=== PATIENT | female | born 1950 | race Caucasian/White ===

== ENCOUNTER 2017-04-25 05:43 | Observation (INO) ==
[2017-04-24 08:55] LABS: MANUAL DIFF NEEDED? NO; URINE MICRO REVIEW NEEDED? NO; URINE SOURCE VOIDED
--- NOTE | 2017-04-24 09:05 | Diag Imaging Result Doc PS360 ---
CHEST-2 VIEWS - 04/24/2017 INDICATION: PAT TECHNIQUE: COMPARISON: 07/20/2016 FINDINGS: The lungs are normally expanded and clear. Heart size and mediastinal contours are normal. No pneumothorax or pleural effusion. IMPRESSION: Negative exam. Electronically signed by Denny Young 04/24/2017 9:02 AM
[2017-04-24 09:13] LABS: BASO% 0.2 % (0.0-0.8); EOS# 0.08 X1000 (0.0-0.7); EOS% 1.7 % (0.0-10.0); HEMATOCRIT 42.9 % (37.0-47.0); HEMOGLOBIN 14.6 g/dL (12.0-16.0); LYMPH# 1.09 X1000 (1.2-3.4); LYMPH% 23.6 % (20.5-51.1); MCH 33.5 PG (27-31); MCV 98.4 FL (81-99); MONO# 0.65 X1000 (0.11-0.59); MONO% 14.1 % (1.7-9.3); MPV 8.8 FL (7.4-10.4); NEUT% 60.4 % (42.2-75.2); PLT 329 X1000 (130-400); RBC 4.36 XMIL (4.2-5.4)
[2017-04-24 09:22] LABS: BILIRUBIN URINE NEGATIVE (NEGATIVE); BLOOD URINE NEGATIVE (NEGATIVE); COLOR YELLOW; GLUCOSE URINE NEGATIVE (NEGATIVE); LEUKOCYTES URINE NEGATIVE (NEGATIVE); NITRITE URINE NEGATIVE (NEGATIVE); PH URINE 6.5; PROTEIN URINE TRACE mg/dL (NEGATIVE); SP GRAVITY URINE 1.025; TURBIDITY URINE CLEAR (CLEAR); UROBILINOGEN URINE 2 mg/dL (NORMAL)
[2017-04-24 09:24] LABS: UR EPITHELIAL CELLS <10 /HPF (<10); URINE BACTERIA NEGATIVE /HPF; URINE RBC <10 /HPF (<10); URINE WBC <10 /HPF (<10)
[2017-04-24 10:01] LABS: AGAP 14; ALBUMIN 4.6 g/dL (3.5-5.0); ALKALINE PHOSPHATASE 146 U/L (32-104); BUN 12 mg/dL (8-22); CALCIUM 9.6 mg/dL (8.8-10.2); CHLORIDE 88 mmol/L (98-107); COSMO 257; GOT 19 U/L (10-30); GPT 15 U/L (10-36); POTASSIUM 5.3 mmol/L (3.5-5.1); SODIUM 128 mmol/L (136-145); TCO2 26 mmol/L (25-35); TOTAL BILIRUBIN 0.54 mg/dL (0.20-1.00)
--- NOTE | 2017-04-24 10:30 | EKG Report ---
Test Performed on : 04/24/2017 08:34:50 AM Test Reason : PAT Blood Pressure : / mmHG Vent. Rate : 076 BPM Atrial Rate : 076 BPM P-R Int : 148 ms QRS Dur : 080 ms QT Int : 366 ms P-R-T Axes : 054 011 055 degrees QTc Int : 411 ms Normal sinus rhythm. Nonspecific T wave abnormality Abnormal ECG When compared with ECG of 20-JUL-2016 07:53, Questionable change in QRS axis Confirmed by August Patel MD ([id number]) on 04/24/2017 1:40:47 PM
[2017-04-25] MEDS ORDERED: KEFZOL 1 GM/D5W 1 GM/50 ML IVPB ONE (06:20)
[2017-04-25] MEDS ORDERED: PEPCID ONE (06:20)
[2017-04-25] MEDS ORDERED: LR 1,000 ML ONE (06:21)
[2017-04-25] MEDS ORDERED: XYLOCAINE-MPF 2% ONE (07:24)
[2017-04-25] MEDS ORDERED: DIPRIVAN 1% ONE (07:24)
[2017-04-25] MEDS ORDERED: XYLOCAINE 1%/EPI 1:100,000 ONE (07:44)
[2017-04-25] MEDS ORDERED: SENSORCAINE 0.25%/EPI 1:200,000 ONE (07:44)
[2017-04-25] MEDS ORDERED: FENTANYL ONE (08:03)
[2017-04-25] MEDS ORDERED: ZOFRAN ONE (08:44)
[2017-04-25 08:53] LABS: AGAP 16; BUN 10 mg/dL (8-22); CALCIUM 8.8 mg/dL (8.8-10.2); CHLORIDE 88 mmol/L (98-107); COSMO 257; POTASSIUM 4.5 mmol/L (3.5-5.1); SODIUM 129 mmol/L (136-145); TCO2 25 mmol/L (25-35)
[2017-04-25] MEDS ORDERED: SODIUM CHLORIDE 0.9% 10 ML ONE ×2 (09:04→09:05)
[2017-04-25] MEDS ORDERED: MARCAINE 0.25% PF ONE (09:04)
[2017-04-25] MEDS ORDERED: EXPAREL 1.3% ONE (09:05)
[2017-04-25] MEDS ORDERED: ROBINUL ONE (09:07)
[2017-04-25] MEDS ORDERED: NEOSTIGMINE ONE (09:08)
[2017-04-25 09:37] LABS: URINE MICRO REVIEW NEEDED? NO; URINE SOURCE CATH
[2017-04-25 09:40] LABS: BILIRUBIN URINE NEGATIVE (NEGATIVE); BLOOD URINE NEGATIVE (NEGATIVE); COLOR YELLOW; GLUCOSE URINE NEGATIVE (NEGATIVE); LEUKOCYTES URINE NEGATIVE (NEGATIVE); NITRITE URINE NEGATIVE (NEGATIVE); PROTEIN URINE NEGATIVE (NEGATIVE); TURBIDITY URINE CLEAR (CLEAR); UR EPITHELIAL CELLS <10 /HPF (<10); URINE BACTERIA NEGATIVE /HPF; URINE RBC <10 /HPF (<10); URINE WBC <10 /HPF (<10); UROBILINOGEN URINE NORMAL (NORMAL)
[2017-04-25] MEDS ORDERED: BENADRYL IV PRN (10:07)
[2017-04-25] MEDS ORDERED: NARCAN IV PRN (10:07)
[2017-04-25] MEDS ORDERED: ZOFRAN IV PRN (10:07)
[2017-04-25] MEDS ORDERED: PHENERGAN IV PRN (10:07)
[2017-04-25] MEDS ORDERED: SODIUM CHLORIDE 0.9% INJ PRN (10:07)
[2017-04-25] MEDS ORDERED: LR 1,000 ML IV SCH (10:07)
[2017-04-25] MEDS: PHENERGAN ONE ×2 (10:11→10:20)
[2017-04-25] MEDS ORDERED: ZOFRAN PO PRN ×2 (10:12→11:56)
[2017-04-25] MEDS ORDERED: OFIRMEV 1000 MG/ISOTONIC SOLN 1,000 MG/100 ML BOTTLE ONE (10:15)
[2017-04-25] MEDS ORDERED: MORPHINE PCA ONE (10:23)
[2017-04-25] MEDS ORDERED: D5 1/2 NS 1,000 ML ONE (10:23)
[2017-04-25] MEDS ORDERED: DILAUDID ONE (10:41)
--- NOTE | 2017-04-25 11:32 | OPERATIVE NOTE ---
PROCEDURE DATE: 04/25/2017 PREOPERATIVE DIAGNOSIS: Suprapubic incisional hernia. POSTOPERATIVE DIAGNOSIS: Suprapubic incisional hernia. PROCEDURES: 1. Exploratory laparotomy. 2. Adhesiolysis. 3. Repair hernia with mesh, Bard type. DESCRIPTION OF PROCEDURE: The patient was brought to the operating room. After satisfactory induction of IV and endotracheal anesthesia, athrombic TEDs and a Howell catheter were placed. Her abdomen was broadly prepped and draped in the appropriate manner for laparotomy. An infraumbilical to pubis midline incision was taken sharply down through skin and subcutaneous tissue. The incisional hernia was in the suprapubic area, about 4 cm up. The peritoneum was entered proximally with extensive adhesiolysis of omental adhesions and small bowel. The hernia sac was entered and opened and the contents reduced. There was no bladder. There was some small intestine. There was no evidence of visceral injury. The edges were freed up. The fascia was reapproximated with interrupted #1 Prolene. The subcutaneous tissue was incised back laterally above the Prolene suture line and a Bard mesh was trimmed to 15 x 8 cm and tacked down with 0 Surgilon. On completion, the reconstructed area appeared to be strong even though the patient's fascia is quite weak. A Geovanny-Murphy drain was threaded through a separate stab wound incision on the left side, anchored with 0 silk, hooked to suction. Subcutaneous was closed with 3-0 Vicryl and the skin, itself, with stainless steel clips. A tap block was performed by the anesthesiologist. A sterile dressing and abdominal binder were subsequently placed. The patient was awakened and extubated in the operating room and transferred to recovery. Howell catheter was left indwelling. ESTIMATED BLOOD LOSS: About 20 mL. cc: Antonio Rodgers MD
[2017-04-25] MEDS: D5 1/2 NS 1,000 ML IV SCH ×2 (11:35→23:28)
[2017-04-25] MEDS: MORPHINE PCA IV PRN (11:35)
[2017-04-25] MEDS: KEFZOL 1 GM/D5W 1 GM/50 ML IVPB IV SCH ×2 (15:19→23:20)
[2017-04-25] MEDS ORDERED: INSULIN PEN NEEDLES ONE (16:14)
[2017-04-25] MEDS: ZOFRAN IV PRN ×2 (18:21→23:28)
[2017-04-25] MEDS: FORTEO SUBQ SCH (20:33)
[2017-04-25] MEDS: TRILEPTAL PO SCH (20:34)
[2017-04-25] MEDS: TYLENOL PO PRN (23:20)
[2017-04-26] MEDS: PRILOSEC PO SCH ×2 (05:25→07:00)
[2017-04-26 05:59] LABS: MANUAL DIFF NEEDED? NO
[2017-04-26] MEDS: MORPHINE PCA IV PRN (06:01)
[2017-04-26 06:08] LABS: BASO% 0.4 % (0.0-0.8); EOS# 0.06 X1000 (0.0-0.7); EOS% 1.1 % (0.0-10.0); HEMATOCRIT 37.7 % (37.0-47.0); HEMOGLOBIN 12.7 g/dL (12.0-16.0); LYMPH% 28.2 % (20.5-51.1); MCH 33.7 PG (27-31); MCHC 33.7 g/dL (33-37); MONO# 0.82 X1000 (0.11-0.59); MONO% 14.5 % (1.7-9.3); MPV 8.7 FL (7.4-10.4); NEUT% 55.8 % (42.2-75.2); PLT 275 X1000 (130-400); RBC 3.77 XMIL (4.2-5.4)
[2017-04-26 06:37] LABS: AGAP 11; BUN 4 mg/dL (8-22); CALCIUM 8.8 mg/dL (8.8-10.2); CHLORIDE 95 mmol/L (98-107); COSMO 261; POTASSIUM 3.9 mmol/L (3.5-5.1); SODIUM 132 mmol/L (136-145); TCO2 26 mmol/L (25-35)
--- NOTE | 2017-04-26 06:42 | EKG Report ---
Test Performed on : 04/26/2017 06:21:00 AM Test Reason : post op Blood Pressure : / mmHG Vent. Rate : 071 BPM Atrial Rate : 071 BPM P-R Int : 158 ms QRS Dur : 090 ms QT Int : 392 ms P-R-T Axes : 045 002 017 degrees QTc Int : 425 ms Normal sinus rhythm. Cannot rule out Inferior infarct , age undetermined Abnormal ECG When compared with ECG of 24-APR-2017 08:34, Nonspecific T wave abnormality now evident in Inferior leads Confirmed by August Patel MD ([id number]) on 05/01/2017 6:00:39 AM
[2017-04-26] MEDS: KEFZOL 1 GM/D5W 1 GM/50 ML IVPB IV SCH (08:12)
[2017-04-26] MEDS: VITAMIN D PO SCH (08:13)
[2017-04-26] MEDS: ZOCOR PO SCH (08:13)
[2017-04-26] MEDS: THERA M PLUS PO SCH (08:13)
[2017-04-26] MEDS: ZOFRAN IV PRN (08:38)
[2017-04-26] MEDS ORDERED: D/C PCA XX ONE (09:00)
[2017-04-26] MEDS: TRILEPTAL PO SCH ×2 (09:49→20:13)
[2017-04-26] MEDS: FORTEO SUBQ SCH (11:00)
[2017-04-26] MEDS: FLOMAX PO SCH (12:49)
[2017-04-26] MEDS: NORCO-10 PO PRN ×3 (12:49→22:03)
[2017-04-26] MEDS: D5 1/2 NS 1,000 ML IV SCH (13:59)
[2017-04-26] MEDS: TYLENOL PO PRN (17:47)
[2017-04-26] MEDS ORDERED: AYR NASAL SPRAY NAS PRN (23:28)
[2017-04-27] MEDS: NORCO-10 PO PRN (02:05)
[2017-04-27] MEDS: D5 1/2 NS 1,000 ML IV SCH (02:08)
[2017-04-27] MEDS: PRILOSEC PO SCH ×2 (05:52→07:48)
[2017-04-27] MEDS: FLOMAX PO SCH (10:32)
[2017-04-27] MEDS: ZOCOR PO SCH (10:32)
[2017-04-27] MEDS: VITAMIN D PO SCH (10:33)
[2017-04-27] MEDS: TRILEPTAL PO SCH ×2 (10:33→21:01)
[2017-04-27] MEDS: THERA M PLUS PO SCH (10:33)
[2017-04-27] MEDS: FORTEO SUBQ SCH (10:33)
[2017-04-27] MEDS ORDERED: D5 1/2 NS 1,000 ML IV SCH (13:04)
[2017-04-27] MEDS: TYLENOL PO PRN (13:45)
[2017-04-28] MEDS: PRILOSEC PO SCH (06:29)
[2017-04-28] MEDS: TYLENOL PO PRN (06:29)
[2017-04-28 07:21] VITALS: BP 140/74
[2017-04-28] MEDS: ZOCOR PO SCH (08:43)
[2017-04-28] MEDS: THERA M PLUS PO SCH (08:43)
[2017-04-28] MEDS: VITAMIN D PO SCH (08:43)
[2017-04-28] MEDS: FLOMAX PO SCH (08:43)
[2017-04-28] MEDS: TRILEPTAL PO SCH (08:43)
[2017-04-28] MEDS: FORTEO SUBQ SCH (08:44)
== END 2017-04-28 09:10 | disposition home or self-care (01) ==
LOC: OR 05:43 → 4N 05:43
PROVIDERS: ADMIT Surgery; ATTEND Surgery